=== PATIENT | male | born 1970 | race Caucasian/White ===

== ENCOUNTER 2017-08-14 08:35 | Emergency (ER) | payer OTHER ==
[2017-08-14] VITALS (7 sets, daily range): BP systolic 105–160; BP diastolic 51–90
[~2017-08-14] VITALS: Ht 175.3 cm; Wt 71.3 kg
--- NOTE | ~2017-08-14 | EKG ---
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
--- NOTE | ~2017-08-14 | 2DMMODE ---
Formerly [facility] [place] [address] 2 D/M-MODE ECHOCARDIOGRAM Name: DAWSON POWERS S Room #: 200-I [facility]#: [id number] Admission: 08/14/17 Attend Phys: Philip Mcdaniels, Discharge: Date of : 72 Date of Service: 08/16/17 1539 Report #: [id number] THIS REPORT FOR: //name// APPROVED REPORT Study performed: 08/16/2017 13:12:41 EXAM: Comprehensive 2D, Doppler, and color-flow Echocardiogram Patient Location: Echo lab Room #: 200 Status: routine BSA: 1.89 HR: 68 bpm BP: 109/61 mmHg Rhythm: NSR Other Information Study Quality: Good Indications Post cardiac arrest, CAD w/ stent, cardiomyopathy. History: tobacco and drug abuse. 2D Dimensions RVDd: 36.31 mm LVEF(%): 82.42 (>50%) IVSd: 8.48 (7-11mm) LVOT Diam: 20.02 (18-24mm) LVDd: 44.99 mm PWd: 8.80 (7-11mm) Ascending Ao: 23.51 (22-36mm) LVDs: 22.02 (25-40mm) Aortic Root: 29.52 mm Rankin's LVEF: 82.42 % Volumes Left Atrial Volume (Systole) Single Plane 4CH: 15.56 mL Single Plane 2CH: 42.07 mL LA ESV Index: 16.00 mL/m2 Aortic Valve AoV Peak Morro.: 1.11 m/s AO Peak Gr.: 4.94 mmHg LVOT Max P.75 mmHg LVOT Max V: 0.83 m/s TEQUILA Vmax: 2.35 cm2 Mitral Valve E/A Ratio: 2.0 [facility]ly [facility] [place] [address] 2 D/M-MODE ECHOCARDIOGRAM Name: DAWSON POWERS Room #: 200-I [facility] IN ..#: [id number] Admission: 08/14/17 Attend Phys: Philip Mcdaniels, Discharge: Date of : 72 Date of Service: 08/16/17 1539 Report #: [id number] MV Decel. Time: 169.80 ms MV E Max Morro.: 0.82 m/s MV A Morro.: 0.42 m/s MV PHT: 49.24 ms IVRT: 89.97 ms Pulmonary Valve PV Peak Morro.: 1.28 m/s PV Peak Gr.: 6.51 mmHg Pulmonary Vein P Vein S: 0.44 m/s P Vein A: 0.25 m/s P Vein D: 0.54 m/s P Vein S/D Ratio: 0.81 Tricuspid Valve TR Peak Morro.: 1.99 m/s RAP Estimate: 5.00 mmHg TR Peak Gr.: 15.86 mmHg PA Pressure: 21.00 mmHg Left Ventricle The left ventricle is normal size. There is normal LV segmental wall motion. There is normal left ventricular wall thickness. The left ventricular systolic function is normal. LVEF is 55-60%. The left ventricular diastolic function is normal. Right Ventricle The right ventricle is normal size. The right ventricular systolic function is normal. Atria The left atrium size is normal. The right atrium size is normal. Aortic Valve The aortic valve is normal in structure. No aortic regurgitation is present. There is no aortic valvular stenosis. Mitral Valve The mitral valve is normal in structure. Trace mitral regurgitation. No evidence of mitral valve stenosis. Tricuspid Valve The tricuspid valve is normal in structure. Trace tricuspid regurgitation.Est PAP is 20-25 [place] [address] 2 D/M-MODE ECHOCARDIOGRAM Name: DAWSON POWERS Room #: 200-I [facility]#: [id number] Admission: 08/14/17 Attend Phys: Philip Mcdaniels, Discharge: Date of : 72 Date of Service: 08/16/17 1539 Report #: [id number] The pulmonary valve is normal in structure. Trace pulmonic regurgitation. Great Vessels The aortic root is normal in size. The ascending aorta is normal in size. IVC is normal in size and collapses >50% with inspiration. Pericardium There is no pericardial effusion. <Conclusion> The left ventricular systolic function is normal. There is normal LV segmental wall motion. LVEF is 55-60%. Normal diastolic function The aortic valve is normal in structure. No aortic regurgitation or stenosis The mitral valve is normal in structure. Trace mitral regurgitation. Trace tricuspid regurgitation. Est pulmonary artery pressure of 20-25 mmHg. There is no pericardial effusion. <ELECTRONICALLY SIGNED> By: Michel Cuellar MD, FACC 08/16/17 1539 1539 1539 Michel Cuellar MD, FACC /INF
[2017-08-14 10:27] LABS: HEMATOCRIT 34.4 % (42.0-52.0); HEMOGLOBIN 11.7 gm/dL (14.0-18.0); MCH 32.2 pg (26.0-34.0); MCHC 34.1 g/dL (28.0-37.0); MCV 94.6 fL (80.0-100.0); PLATELET COUNT 721 thou/uL (150-400); RBC 3.64 mil/uL (4.50-6.00); RDW 12.5 % (10.5-14.5); WBC 9.8 thou/uL (4.0-11.0)
[2017-08-14 10:39] LABS: ANION GAP 4 mmol/L (7-16); BUN 24 mg/dL (7-18); CALCIUM 8.8 mg/dL (8.5-10.1); CHLORIDE 105 mmol/L (98-107); CO2 29 mmol/L (21-32); CREATININE 1.2 mg/dL (0.7-1.3); GLUCOSE 100 mg/dL (74-106); POTASSIUM 4.3 mmol/L (3.5-5.1); SODIUM 138 mmol/L (136-145)
[2017-08-14 10:47] LABS: ALBUMIN 2.8 g/dL (3.4-5.0); SGOT 36 U/L (15-37); SGPT 77 U/L (30-65); TOTAL BILIRUBIN 0.7 mg/dL (<0.1-1.0); TOTAL PROTEIN 7.2 g/dL (6.4-8.2); TROPONIN-I < 0.04 ng/mL (<0.06)
[2017-08-14 11:06] LABS: ABSOLUTE NEUTROPHILS 6.3 thou/uL (1.4-8.2); METAMYELOCYTES 1 %; MYELOCYTES 1 %
[2017-08-14 13:05] LABS: PROCALCITONIN < 0.05 ng/mL (<0.50)
[2017-08-15 04:44] VITALS: BP 107/60
[2017-08-15 05:02] LABS: URINE BILIRUBIN NEGATIVE (Negative); URINE BLOOD NEGATIVE (Negative); URINE CLARITY CLEAR; URINE COLOR YELLOW; URINE GLUCOSE-RANDOM* NEGATIVE (Negative); URINE KETONES NEGATIVE (Negative); URINE LEUKOCYTES-REFLEX NEGATIVE (Negative); URINE NITRITE-REFLEX NEGATIVE (Negative); URINE PROTEIN (DIPSTICK) NEGATIVE (Negative); URINE SPECIFIC GRAVITY 1.025 (1.005-1.035); URINE UROBILINOGEN 0.2 E.U./dl (0.2-1.0)
[2017-08-15 05:11] LABS: AMP/METHAMP POSITIVE (Negative); BARBITURATES Negative (Negative); BENZODIAZEPINES Negative (Negative); COCAINE Negative (Negative); METHADONE Negative (Negative); OPIATES Negative (Negative); PCP Negative (Negative)
[2017-08-15 08:00] VITALS: BP 101/54
[2017-08-15 12:00] VITALS: BP 117/64
[2017-08-15 12:03] LABS: ABSOLUTE NEUTROPHILS 8.7 thou/uL (1.4-8.2); BASOPHILS 0.9 % (0.0-2.0); EOSINOPHILS 1.3 % (0.0-3.0); HEMATOCRIT 33.9 % (42.0-52.0); HEMOGLOBIN 11.8 gm/dL (14.0-18.0); LYMPHOCYTES 12.8 % (24.0-44.0); MCH 32.7 pg (26.0-34.0); MCHC 34.7 g/dL (28.0-37.0); MCV 94.2 fL (80.0-100.0); MONOCYTES 4.9 % (1.0-8.0); PLATELET COUNT 707 thou/uL (150-400); POLYS 80.1 % (36.0-66.0); RBC 3.59 mil/uL (4.50-6.00); RDW 12.5 % (10.5-14.5); WBC 10.8 thou/uL (4.0-11.0)
[2017-08-15 12:24] LABS: ANION GAP 4 mmol/L (7-16); BUN 19 mg/dL (7-18); CHLORIDE 106 mmol/L (98-107); CO2 29 mmol/L (21-32); GLUCOSE 122 mg/dL (74-106); MAGNESIUM 2.1 mg/dL (1.8-2.4); POTASSIUM 3.9 mmol/L (3.5-5.1); SODIUM 139 mmol/L (136-145)
[2017-08-15 13:49] LABS: CHOLESTEROL 144 mg/dL (<200); HDL CHOLESTEROL 32 mg/dL (>40); LDL CHOLESTEROL 84 mg/dL (<100); TC:HDL 4.5 Ratio (Not establshd); TRIGLYCERIDE 143 mg/dL (<150); VLDL 29 mg/dL (<40)
[2017-08-15 16:00] VITALS: BP 110/66
[2017-08-15 19:23] VITALS: BP 101/68
[2017-08-16 07:57] VITALS: BP 108/60
[2017-08-16 12:09] VITALS: BP 109/61
[2017-08-16 15:35] VITALS: BP 104/60
[2017-08-16 19:10] VITALS: BP 107/71
[2017-08-17 05:20] VITALS: BP 117/73
[2017-08-17 07:59] VITALS: BP 105/60
[2017-08-17] MEDS ORDERED: PLAVIX 75 MG TA75 M1 PO (12:25)
[2017-08-17] MEDS ORDERED: ATORVASTATIN CA40 MG PO (12:25)
[2017-08-17] MEDS ORDERED: COZAAR 25 MG TA25 M1 PO (12:25)
[2017-08-17] MEDS ORDERED: CARVEDILOL3.125 MG PO (12:25)
[2017-08-17] MEDS ORDERED: LEVAQUIN 750 M750 MG PO (12:25)
[2017-08-17] MEDS ORDERED: PREDNISONE 10 M10 MG PO (12:26)
== END 2017-08-14 11:40 | disposition still patient (30) ==
LOC: ER 08:35 → 2N 11:10 → EROBS 11:10 → ER 11:40 → EROBS 12:44 → 2N 12:44
PROVIDERS: Emergency Medicine; Nurse Practitioner; Nurse Practitioner Family
DX: J18.9 Pneumonia, unspecified organism (principal); R07.89 Other chest pain; D47.3 Essential (hemorrhagic) thrombocythemia; F17.210 Nicotine dependence, cigarettes, uncomplicated; Z95.5 Presence of coronary angioplasty implant and graft
CPT/HCPCS: 10081